=== PATIENT | male | born 1990 | race Caucasian/White ===

== ENCOUNTER 2019-10-11 11:34 | Emergency (ER) | payer BC, SELFPAY ==
[2019-10-11 11:36] VITALS: BP 138/78; PULSE 77; RESP 16; TEMP 36.6; O2SAT 97; BMI 30.5
--- NOTE | 2019-10-11 12:05 | EKG12_ITS ---
Test Reason : DIZZINESS Blood Pressure : / mmHG Vent. Rate : 064 BPM Atrial Rate : 064 BPM P-R Int : 164 ms QRS Dur : 092 ms QT Int : 392 ms P-R-T Axes : 023 037 030 degrees QTc Int : 404 ms Normal sinus rhythm Normal ECG Confirmed by PABLO VILLASENOR, INDER ([id number]), newspaper managing editor AUDIE PENNINGTON ([id number]) on 10/14/2019 11:40:53 AM Referred By: ANGELITA Confirmed By:INDER SHAH MD
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
--- NOTE | 2019-10-11 12:05 | RAD_ITS ---
STUDY: X-RAY CHEST REASON FOR EXAM: Male, 29 years old. Chest pain TECHNIQUE: AP COMPARISON: None. FINDINGS: EKG leads project over the chest. The lungs are clear but under expanded. There is no demonstrated pleural abnormality. Normal size heart. Normal mediastinum and dayami. Normal visualized pulmonary arteries. Normal visualized aortic arch and descending thoracic aorta. Normal visualized thoracic spine. Normal visualized ribs, clavicles, and shoulders. There is no demonstrated abnormality of the visualized soft tissue structures of the upper abdomen. RAD/Chest 1 View (Portable) IMPRESSION: Nonacute portable x-ray examination of the chest. Electronically Signed: Gael Guzman MD ([place]) at 12:35 EST , Service support ,
[2019-10-11 12:37] LABS: Absolute Neutrophil Count 2.3 X10^3/uL (2.0-7.7); Basophil# 0.02 X10^3/uL; Basophil% 0.4 % (0-1); Eosinophil# 0.05 X10^3/uL; Hematocrit 49.6 % (40-54); Hemoglobin 16.3 g/dL (13.0-16.5); Lymphocyte % 39.1 % (19-41); Mean Corp Hgb Conc 32.9 g/dL (32-36); Mean Corpuscular Hgb 30.5 pg (27.0-32.0); Mean Corpuscular Volume 92.9 fL (80-94); Mean Platelet Vol. 9.7 fl (6.2-12.0); Monocyte# 0.59 X10^3/uL; Monocyte% 12.1 % (0-10); NRBC Flagged by Analyzer 0 % (0-5); Neutrophil # 2.28 X10^3/uL (2.7-7.7); Platelet Count 232 K/mm3 (150-450); RBC Distribution Width CV 12.6 % (11.6-14.6); RBC Distribution Width SD 43.4 fl (35.1-43.9); Red Blood Count 5.34 M/mm3 (4.6-6.2); White Blood Count 4.9 K/mm3 (4.4-11.0)
[2019-10-11 12:43] LABS: Amphetamine Urine VISTA NEGATIVE (<1000 ng/mL); Barbiturate Urine VISTA NEGATIVE (< 200 ng/mL); Benzodiazepine Urine VISTA NEGATIVE (< 200 ng/mL); Cocaine Urine VISTA NEGATIVE (< 300 ng/mL); Ecstacy Urine VISTA NEGATIVE (< 500 ng/mL); Methadone Urine VISTA NEGATIVE (< 300 ng/mL); PCP Urine VISTA NEGATIVE (< 25 ng/mL); THC Urine VISTA NEGATIVE (< 50 ng/mL); Vista UDS pH Range 6
[2019-10-11 12:57] LABS: Alcohol, Blood (Medical)-Serum < 3.0 mg/dL
[2019-10-11 13:22] LABS: Anion Gap 4 (5-15); BUN 11 mg/dL (7-18); BUN/Creat Ratio 11.5 RATIO (10-20); Calcium,Total 8.8 mg/dL (8.5-10.1); Chloride 108 mmol/L (98-107); Creatinine, Serum 0.96 mg/dL (0.70-1.30); EST Glomerular Filtration Rate 97 mL/min (>60); Est Glom Filt Rate - Afr Amer 117 mL/min (>60); Estimated Creatinine Clearance 122.37 ml/min; Glucose 84 mg/dL (74-106); Potassium 4.5 mmol/L (3.5-5.1); Sodium Level 141 mmol/L (136-145)
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
[2019-10-11 13:58] VITALS: BP 123/75; PULSE 62; PULSE 72; RESP 17; O2SAT 97
[2019-10-11 14:00] VITALS: RESP 16
[2019-10-11 14:28] VITALS: BP 125/77; PULSE 62; RESP 16; O2SAT 96
[2019-10-11 16:14] VITALS: BP 135/81; PULSE 79; RESP 18; O2SAT 97
[2019-10-11 17:22] VITALS: BP 119/99; PULSE 69; RESP 19; O2SAT 97
--- NOTE | 2019-10-11 17:26 | ED.RN ---
REPORT CALLED TO [facility], REPORT GIVEN TO SUBHA LARKIN.
--- NOTE | 2019-10-11 17:50 | ED.RN ---
ems in department
== END 2019-10-11 17:51 | disposition short-term general hospital (02) ==
PROVIDERS: Emergency Provider Emergency Medicine
DX: R55 Syncope and collapse (principal); V47.5XXA Car driver injured in collision with fixed or stationary object in traffic accident, initial encounter; Y93.9 Activity, unspecified; Y92.410 Unspecified street and highway as the place of occurrence of the external cause; Y99.9 Unspecified external cause status
CPT/HCPCS: 70450; 71045; 80048; 80307; 80320; 84484; 85025; 93005; 99285; A4216; G0480